=== PATIENT | female | born 1970 | race Caucasian/White ===

== ENCOUNTER 2018-10-28 13:41 | Inpatient (IN) | payer MEDICAID ==
[2018-10-28 14:49] LABS: ADD MAN DIFF? NO
[2018-10-28 14:54] LABS: BASOPHIL # 0.1 10^3/ul (0.0-0.1); BASOPHILS % 0.6 % (0.0-2.0); EOSINOPHILS # 0.3 10^3/ul (0.0-0.5); EOSINOPHILS % 3.4 % (0.0-7.0); HEMATOCRIT 43.3 % (37.0-47.0); HEMOGLOBIN 14.6 g/dl (12.0-16.0); LYMPHOCYTES # 2.3 10^3/ul (0.8-2.9); MEAN CORPUSCULAR HEMOGLOBIN 28.2 pg (29.0-33.0); MEAN CORPUSCULAR HGB CONC 33.7 g/dl (32.0-37.0); MEAN CORPUSCULAR VOLUME 83.8 fl (82.0-101.0); MEAN PLATELET VOLUME 10.5 fl (7.4-10.4); MONOCYTE # 0.6 10^3/ul (0.3-0.9); MONOCYTES % 7.4 % (0.0-11.0); NEUTROPHIL # 5.2 10^3/ul (1.6-7.5); NEUTROPHILS % 61.1 % (39.0-77.0); PLATELET COUNT 305 10^3/UL (140-415); RED BLOOD COUNT 5.17 10^6/ul (4.20-5.40); RED CELL DISTRIBUTION WIDTH 13.6 % (11.5-14.5)
[2018-10-28 14:54] LABS: WHITE BLOOD COUNT 8.5 10^3/ul (4.8-10.8)
[2018-10-28] MEDS: ASPIRIN 325 MG TAB PO (15:04)
[2018-10-28] MEDS: SOD CHLORIDE 0.9% 1,000 ML IV (15:04)
[2018-10-28] MEDS: NITROGLYCERIN 2% 1 GM OINT PKT TD (15:05)
[2018-10-28 15:10] LABS: ANION GAP 11 (5-13); BLOOD UREA NITROGEN 20 mg/dl (7-20); CALCIUM 9.3 mg/dl (8.4-10.2); CARBON DIOXIDE 25 mmol/L (21-31); CHLORIDE 108 mmol/L (97-110); CREATININE 0.47 mg/dl (0.44-1.00); Estimated GFR > 60 mL/min (>60); GLUCOSE 102 mg/dl (70-220); POTASSIUM 3.9 mmol/L (3.5-5.1); SODIUM 144 mmol/L (135-144)
[2018-10-28 15:14] LABS: INR 0.93; PROTIME 12.6 Sec (11.9-14.9)
[2018-10-28 15:15] LABS: PARTIAL THROMBOPLASTIN TIME 29.4 Sec (23.0-35.0)
[2018-10-28 15:22] LABS: TROPONIN-I < 0.012 ng/ml (0.000-0.120)
[2018-10-28 15:24] LABS: D-DIMER 321.26 ng/ml (<460)
[2018-10-28] MEDS: SOD CHLORIDE 0.9% 100 ML (16:05)
[2018-10-28] MEDS: IOHEXOL 100 ML (16:05)
[2018-10-28] MEDS: NICARDipine HCL 30 MG CAPSULE PO (16:39)
[2018-10-28] MEDS ORDERED: DILTIAZEM 25 MG INJ (17:24)
[2018-10-28] MEDS: DILTIAZEM 25 MG INJ IV (17:35)
[2018-10-28] MEDS ORDERED: ACETAMINOPHEN 325 MG TAB PO (19:00)
[2018-10-28] MEDS ORDERED: NACL 0.9% 3 ML SYG IV (19:00)
[2018-10-28] MEDS ORDERED: ONDANSETRON 4 MG INJ IV (19:00)
[2018-10-28 19:22] LABS: MAGNESIUM 1.9 mg/dl (1.7-2.5)
[2018-10-28 19:37] LABS: FREE T4 (FREE THYROXINE) 1.15 ng/dl (0.64-1.79)
[2018-10-28] MEDS: PROPRANOLOL 40 MG TAB PO (21:00)
[2018-10-28] MEDS: ACETAMINOPHEN 325 MG TAB PO (21:24)
[2018-10-28 21:54] LABS: TROPONIN-I < 0.012 ng/ml (0.000-0.120)
[2018-10-29 03:18] LABS: TROPONIN-I < 0.012 ng/ml (0.000-0.120)
[2018-10-29 06:26] LABS: ADD MAN DIFF? NO
[2018-10-29 06:38] LABS: BASOPHILS % 0.4 % (0.0-2.0); EOSINOPHILS # 0.2 10^3/ul (0.0-0.5); EOSINOPHILS % 1.8 % (0.0-7.0); HEMATOCRIT 39.7 % (37.0-47.0); HEMOGLOBIN 13.3 g/dl (12.0-16.0); LYMPHOCYTES # 2.6 10^3/ul (0.8-2.9); LYMPHOCYTES % 24.1 % (15.0-51.0); MEAN CORPUSCULAR HEMOGLOBIN 27.9 pg (29.0-33.0); MEAN CORPUSCULAR HGB CONC 33.5 g/dl (32.0-37.0); MEAN CORPUSCULAR VOLUME 83.2 fl (82.0-101.0); MEAN PLATELET VOLUME 10.7 fl (7.4-10.4); MONOCYTE # 0.8 10^3/ul (0.3-0.9); MONOCYTES % 7.4 % (0.0-11.0); NEUTROPHIL # 7.2 10^3/ul (1.6-7.5); NEUTROPHILS % 65.8 % (39.0-77.0); PLATELET COUNT 299 10^3/UL (140-415); RED BLOOD COUNT 4.77 10^6/ul (4.20-5.40); RED CELL DISTRIBUTION WIDTH 13.8 % (11.5-14.5)
[2018-10-29 06:38] LABS: WHITE BLOOD COUNT 10.9 10^3/ul (4.8-10.8)
[2018-10-29 07:12] LABS: ALANINE AMINOTRANSFERASE 51 IU/L (13-69); ALBUMIN 4.2 g/dl (3.3-4.9); ALBUMIN/GLOBULIN RATIO 1.44; ALKALINE PHOSPHATASE 68 IU/L (42-121); ANION GAP 9 (5-13); ASPARTATE AMINO TRANSFERASE 37 IU/L (15-46); BILIRUBIN,INDIRECT 0.5 mg/dl (0-1.1); BILIRUBIN,TOTAL 0.5 mg/dl (0.2-1.3); BLOOD UREA NITROGEN 19 mg/dl (7-20); CALCIUM 9.1 mg/dl (8.4-10.2); CARBON DIOXIDE 25 mmol/L (21-31); CHLORIDE 107 mmol/L (97-110); CREATININE 0.46 mg/dl (0.44-1.00); Estimated GFR > 60 mL/min (>60); GLUCOSE 99 mg/dl (70-220); MAGNESIUM 2.1 mg/dl (1.7-2.5); PHOSPHORUS 3.8 mg/dl (2.5-4.9); POTASSIUM 3.6 mmol/L (3.5-5.1); SODIUM 141 mmol/L (135-144); TOTAL PROTEIN 7.1 g/dl (6.1-8.1)
[2018-10-29 07:42] LABS: HEMOGLOBIN A1C 5.4 % (0-5.9)
[2018-10-29] MEDS: PROPRANOLOL 40 MG TAB PO ×3 (09:08→20:31)
[2018-10-29] MEDS: ACETAMINOPHEN 325 MG TAB PO (14:44)
[2018-10-30 07:58] LABS: ANION GAP 9 (5-13); Estimated GFR > 60 mL/min (>60)
[2018-10-30 08:03] LABS: BLOOD UREA NITROGEN 18 mg/dl (7-20); CALCIUM 9.3 mg/dl (8.4-10.2); CARBON DIOXIDE 28 mmol/L (21-31); CHLORIDE 105 mmol/L (97-110); CREATININE 0.55 mg/dl (0.44-1.00); GLUCOSE 101 mg/dl (70-220); MAGNESIUM 2.2 mg/dl (1.7-2.5); POTASSIUM 4.1 mmol/L (3.5-5.1); SODIUM 142 mmol/L (135-144)
[2018-10-30] MEDS: PROPRANOLOL 40 MG TAB PO ×2 (09:00→12:30)
[2018-10-30] MEDS: REGADENOSON 0.4 MG/5 ML SYG (10:14)
[2018-10-31] MEDS ORDERED: LEVOTHYROXINE 75 MCG TAB PO (06:00)
== END 2018-10-30 17:35 | disposition home or self-care (01) | DRG 310 ==
LOC: E/R 13:41 → TEL 18:34
PROVIDERS: Internal Medicine
DX: R00.0 Tachycardia, unspecified (principal); R07.89 Other chest pain; E03.9 Hypothyroidism, unspecified; I10 Essential (primary) hypertension; F41.9 Anxiety disorder, unspecified
CPT/HCPCS: 36415; 71275; 78452; 80048; 80053; 83036; 83735; 84100; 84439; 84443; 84484; 84703; 85025; 85378; 85610; 85730; 93005; 93017; 93306; 96374; 99217; 99285-25

== ENCOUNTER 2018-11-28 23:12 | Emergency (ER) | payer MEDICAID ==
[2018-11-29] MEDS ORDERED: LABETALOL HCL 20MG INJ IV (03:00)
[2018-11-29 03:24] LABS: ADD MAN DIFF? NO; BASOPHIL # 0.1 10^3/ul (0.0-0.1); BASOPHILS % 0.4 % (0.0-2.0); EOSINOPHILS # 0.1 10^3/ul (0.0-0.5); EOSINOPHILS % 0.6 % (0.0-7.0); HEMATOCRIT 40.6 % (37.0-47.0); HEMOGLOBIN 13.7 g/dl (12.0-16.0); LYMPHOCYTES # 1.9 10^3/ul (0.8-2.9); LYMPHOCYTES % 16.4 % (15.0-51.0); MEAN CORPUSCULAR HEMOGLOBIN 28.1 pg (29.0-33.0); MEAN CORPUSCULAR HGB CONC 33.7 g/dl (32.0-37.0); MEAN CORPUSCULAR VOLUME 83.2 fl (82.0-101.0); MEAN PLATELET VOLUME 11.3 fl (7.4-10.4); MONOCYTE # 0.4 10^3/ul (0.3-0.9); MONOCYTES % 3.3 % (0.0-11.0); NEUTROPHIL # 8.9 10^3/ul (1.6-7.5); NEUTROPHILS % 78.9 % (39.0-77.0); PLATELET COUNT 261 10^3/UL (140-415); RED BLOOD COUNT 4.88 10^6/ul (4.20-5.40); RED CELL DISTRIBUTION WIDTH 12.9 % (11.5-14.5)
[2018-11-29 03:24] LABS: WHITE BLOOD COUNT 11.3 10^3/ul (4.8-10.8)
[2018-11-29 03:45] LABS: ALANINE AMINOTRANSFERASE 32 IU/L (13-69); ALBUMIN 4.7 g/dl (3.3-4.9); ALBUMIN/GLOBULIN RATIO 1.46; ALKALINE PHOSPHATASE 98 IU/L (42-121); ANION GAP 12 (5-13); ASPARTATE AMINO TRANSFERASE 32 IU/L (15-46); BILIRUBIN,INDIRECT 0.4 mg/dl (0-1.1); BILIRUBIN,TOTAL 0.4 mg/dl (0.2-1.3); BLOOD UREA NITROGEN 23 mg/dl (7-20); CALCIUM 9.7 mg/dl (8.4-10.2); CARBON DIOXIDE 24 mmol/L (21-31); CHLORIDE 105 mmol/L (97-110); Estimated GFR > 60 mL/min (>60); GLUCOSE 137 mg/dl (70-220); POTASSIUM 3.8 mmol/L (3.5-5.1); SODIUM 141 mmol/L (135-144); TOTAL PROTEIN 7.9 g/dl (6.1-8.1)
[2018-11-29 03:56] LABS: B-TYPE NATRIURETIC PEPTIDE 107 PG/ML (0-125); TROPONIN-I < 0.012 ng/ml (0.000-0.120)
== END 2018-11-29 04:54 | disposition home or self-care (01) ==
LOC: E/R 23:12
DX: I10 Essential (primary) hypertension (principal); R40.2142 Coma scale, eyes open, spontaneous, at arrival to emergency department; R40.2362 Coma scale, best motor response, obeys commands, at arrival to emergency department; R40.2252 Coma scale, best verbal response, oriented, at arrival to emergency department
CPT/HCPCS: 36415; 71045; 80053; 83880; 84484; 85025; 93005; 99285-25